=== PATIENT | male | born 1970 | race African-American/Black ===

== ENCOUNTER 2016-04-04 02:12 | Emergency (ER) ==
[2016-04-04] MEDS ORDERED: ATIVAN IM ONE (02:30)
--- NOTE | 2016-04-04 02:34 | PROVIDER DOCUMENTATION ---
HPI-General Adult <José AntonioShahbazKeliJacky PonceCheryl - Last Filed: 04/04/16 04:35> - General Source: patient - History of Present Illness -Gen Adult Nature of Presenting Problems: 45 Y/O M presents to ED with Anxiety. Pt states that this morning he was hanging out with a group of 20 dudes, and started smoking a cig, Pt states he doesn't know where the Cigarette came from. Swears he does not do drugs. Location of Pain/Injury: reports: none Pain Radiation: reports: no radiation Quality of Pain: reports: none Severity: reports: mild Onset/Duration: reports: this morning Timing: reports: still present Context/Activities at Onset: reports: none Associated Symptoms: reports: anxiety, shortness of breath Similar Symptoms Previously?: No Recently seen or treated by another doctor?: No <Lisa Sarkar - Last Filed: 04/10/16 16:51> - General Chief Complaint: Anxiety Stated Complaint: SOB Time Seen by Provider: 04/04/16 02:30 Allergies/Adverse Reactions: Patient Allergies Allergy/AdvReac Type Severity Reaction Status Date / Time No Known Allergies Allergy Verified 04/04/16 02:36 Home Medications: No Home Medications 01/26/16 Review of Systems - Adult - REVIEW OF SYSTEMS - ADULT Constitutional: denies: chills, fever Eyes: reports: no symptoms reported Ears, Nose, Mouth & Throat: reports: no symptoms reported Cardiovascular: reports: no symptoms reported Respiratory: reports: shortness of breath Gastrointestinal: reports: no symptoms reported Genitourinary: reports: no symptoms reported Musculoskeletal: reports: no symptoms reported Integumentary: reports: no symptoms reported Neurological: reports: no symptoms reported Psychiatric: reports: anxiety Endocrine: reports: no symptoms reported Hematologic/Lymphatic: reports: no symptoms reported Allergic/Immunologic: reports: no symptoms reported All Other Systems: Reviewed and Negative <Lisa Sarkar - Last Filed: 04/10/16 16:51> Past History - Adult - PAST MEDICAL HISTORY-ADULT Review of Records: reports: Old Records Reviewed, Nursing Assessment Review, Medications Reviewed, Social history reviewed & non-contributory. Major Childhood Illnesses: reports: denies history Cardiovascular: reports: denies history Respiratory: reports: denies history Gastrointestinal: reports: denies history Obstetrical/Gynecological: reports: denies history Genitourinary: reports: denies history Musculoskeletal: reports: denies history Neurological: reports: denies history Endocrine/Immune: reports: denies history Other Conditions: reports: denies history - IMMUNIZATION STATUS Childhood Immunizations: See Nurse Assessment Flu Vaccine: See Nurse Assessment - FAMILY HISTORY Family History: reviewed, not pertinent - SOCIAL HISTORY Smoking: cigarettes, greater than 1 pack/day Substance Use: marijuana, cocaine Alcohol Use Frequency: occasionally Living Situation: family <MelloLisa - Last Filed: 04/10/16 16:51> Physical Exam-General - PHYSICAL EXAM-ADULT Initial Vital Signs Reviewed: Yes - CONSTITUTIONAL General Appearance: appears well, alert, anxious - EYES Eyes: PERRL/EOMI, pink conjunctivae - HEAD, EARS, NOSE, MOUTH & THROAT HENMT: normocephalic/atraumatic, moist mucous membranes, normal ENT inspection - NECK Neck: non-tender, full range of motion, normal inspection - RESPIRATORY Respiratory: chest non-tender, lungs clear, other (tachypnea) - CARDIOVASCULAR Cardiovascular: normal peripheral pulses, regular rate, rhythm, no edema - GASTROINTESTINAL (ABDOMEN) Abdominal Exam: normal bowel sounds, non tender, soft - LYMPHATIC Lymphatic: no adenopathy - MUSCULOSKELETAL Back Exam: normal inspection, no CVA tenderness, no vertebral tenderness Extremity: normal range of motion, non-tender, normal gait - SKIN Integumentary: normal color, normal turgor, warm/dry - NEUROLOGIC Neurologic: grossly normal, no motor/sensory deficits - PSYCHIATRIC Psych/Mental Status: normal thought content, normal thought process, oriented x 3, anxious <MelloLisa - Last Filed: 04/10/16 16:51> Progress - PLAN OF CARE/RESULTS Progress/Plan/Lab Results: Laboratory Tests 04/04/16 04/04/16 04/04/16 02:45 02:45 02:45 WBC 8.46 RBC 4.72 Hgb 13.8 L Hct 39.1 L MCV 82.8 MCH 29.2 MCHC 35.3 RDW Std Deviation 13.4 Plt Count 296 MPV 10.3 Immature Gran % (Auto) 0.2 Neut % (Auto) 71.7 Lymph % (Auto) 14.2 L [place] % (Auto) 7.6 Eos % (Auto) 6.1 Baso % (Auto) 0.2 Immature Gran # (Auto) 0.02 Neut # 6.06 Lymph # 1.20 [place] # 0.64 H Eos # 0.52 Baso # 0.02 Sodium 131 L Potassium 3.4 L Chloride 94 L Carbon Dioxide 22 L Anion Gap 15 BUN 13 Creatinine 1.5 H Estimated GFR/1.73 m2 > 60 BUN/Creatinine Ratio 9 Glucose 176 H Calculated Osmolality 267 Calcium 8.5 L Total Bilirubin 0.57 AST 18 ALT 15 Alkaline Phosphatase 83 Total Protein 7.7 Albumin 4.4 Globulin 3.3 Albumin/Globulin Ratio 1.3 Urine Opiates Screen Ur Oxycodone Screen Ur Methadone, Qual Ur Barbiturates Screen Ur Phencyclidine Scrn Ur Amphetamines Screen U Benzodiazepines Scrn Urine Cocaine Screen U Cannabinoids Screen Plasma/Serum Ethyl Alc 04/04/16 03:35 WBC RBC Hgb Hct MCV MCH MCHC RDW Std Deviation Plt Count MPV Immature Gran % (Auto) Neut % (Auto) Lymph % (Auto) [place] % (Auto) Eos % (Auto) Baso % (Auto) Immature Gran # (Auto) Neut # Lymph # [place] # Eos # Baso # Sodium Potassium Chloride Carbon Dioxide Anion Gap BUN Creatinine Estimated GFR/1.73 m2 BUN/Creatinine Ratio Glucose Calculated Osmolality Calcium Total Bilirubin AST ALT Alkaline Phosphatase Total Protein Albumin Globulin Albumin/Globulin Ratio Urine Opiates Screen NONE DETECTED Ur Oxycodone Screen NONE DETECTED Ur Methadone, Qual NONE DETECTED Ur Barbiturates Screen NONE DETECTED Ur Phencyclidine Scrn NONE DETECTED Ur Amphetamines Screen NONE DETECTED U Benzodiazepines Scrn NONE DETECTED Urine Cocaine Screen PRESUMPTIVE POSITIVE A U Cannabinoids Screen NONE DETECTED Plasma/Serum Ethyl Alc Orders Category Date Time Status ALCOHOL BLOOD Stat Lab 04/04/16 02:45 Completed CBC WITH ELECTRONIC DIFF [HEME] Stat Lab 04/04/16 02:45 Completed CMP [COMPREHENSIVE METABOLIC PANEL] [CHEM] Stat Lab 04/04/16 02:45 Completed UDS [URINE DRUG SCREEN] Stat Lab 04/04/16 03:35 Completed Lorazepam [Ativan] Med 04/04/16 02:30 Discontinued 2 mg IM NOW ONE EKG [EKG] Stat Ther 04/04/16 02:30 Ordered Vital Signs Temp Pulse Resp BP Pulse Ox 04/04/16 02:20 98 F 100 H 25 H 182/102 100 No Known Allergies Allergy (Verified 04/04/16 02:36) No Home Medications 01/26/16 I&O 04/02/16 04/03/1604/04/17 06:59 06:59 06:59 Output Total 80 Balance -80 Laboratory 04/04/16 04/04/16 04/04/16 03:35 02:45 02:45 WBC 8.46 RBC 4.72 Hgb 13.8 L Hct 39.1 L MCV 82.8 MCH 29.2 MCHC 35.3 RDW Std Deviation 13.4 Plt Count 296 MPV 10.3 Immature Gran % (Auto) 0.2 Neut % (Auto) 71.7 Lymph % (Auto) 14.2 L [place] % (Auto) 7.6 Eos % (Auto) 6.1 Baso % (Auto) 0.2 Immature Gran # (Auto) 0.02 Neut # 6.06 Lymph # 1.20 [place] # 0.64 H Eos # 0.52 Baso # 0.02 Sodium 131 L Potassium 3.4 L Chloride 94 L Carbon Dioxide 22 L Anion Gap 15 BUN 13 Creatinine 1.5 H Estimated GFR/1.73 m2 > 60 BUN/Creatinine Ratio 9 Glucose 176 H Calculated Osmolality 267 Calcium 8.5 L Total Bilirubin 0.57 AST 18 ALT 15 Alkaline Phosphatase 83 Total Protein 7.7 Albumin 4.4 Globulin 3.3 Albumin/Globulin Ratio 1.3 Urine Opiates Screen NONE DETECTED Ur Oxycodone Screen NONE DETECTED Ur Methadone, Qual NONE DETECTED Ur Barbiturates Screen NONE DETECTED Ur Phencyclidine Scrn NONE DETECTED Ur Amphetamines Screen NONE DETECTED U Benzodiazepines Scrn NONE DETECTED Urine Cocaine Screen PRESUMPTIVE POSITIVE A U Cannabinoids Screen NONE DETECTED Plasma/Serum Ethyl Alc 04/04/16 02:45 WBC RBC Hgb Hct MCV MCH MCHC RDW Std Deviation Plt Count MPV Immature Gran % (Auto) Neut % (Auto) Lymph % (Auto) [place] % (Auto) Eos % (Auto) Baso % (Auto) Immature Gran # (Auto) Neut # Lymph # [place] # Eos # Baso # Sodium Potassium Chloride Carbon Dioxide Anion Gap BUN Creatinine Estimated GFR/1.73 m2 BUN/Creatinine Ratio Glucose Calculated Osmolality Calcium Total Bilirubin AST ALT Alkaline Phosphatase Total Protein Albumin Globulin Albumin/Globulin Ratio Urine Opiates Screen Ur Oxycodone Screen Ur Methadone, Qual Ur Barbiturates Screen Ur Phencyclidine Scrn Ur Amphetamines Screen U Benzodiazepines Scrn Urine Cocaine Screen U Cannabinoids Screen Plasma/Serum Ethyl Alc - REASSESSMENT Reassessment #1 Time Reassessed: 04:35 Status: improving <Jacky Wilburn - Last Filed: 04/04/16 04:35> - EKG 1 Time of EKG reading by physician:: 02:46 EKG Read and Signed by:: Jacky Wilburn EKG Interpretation (*Must complete 3 of following elements*): Normal Rate: 90 Rhythm: NSR Comments: Normal ECG <Lisa Sarkar - Last Filed: 04/10/16 16:51> Departure - Departure Time of Disposition Order: 04:35 Certified Medical Emergency: Emergent <Jacky Wilburn - Last Filed: 04/04/16 04:35> - Departure Certified Medical Emergency: Emergent <Lisa Sarkar - Last Filed: 04/10/16 16:51> - Departure DIAGNOSIS: Cocaine abuse with cocaine-induced anxiety disorder Disposition: HOME 01 Condition: Good Additional Instructions: don't use cocaine any more ED Follow Up Instructions: You have been treated by a care provider in the Emergency Department. These instructions are being provided to you so you can have an understanding of how to care for yourself upon discharge. Upon discharge from the Emergency Department, you are responsible for making arrangements for follow-up care by a physician of your choice. Take all prescribed medications as directed. Return to the Emergency Department immediately for any new or worsening symptoms. You may call the Physician Referral phone number at [phone] to obtain a list of Physicians who are taking new patients. Referrals: None,PCP [Primary Care Provider] - Instructions: Finding Treatment for Addiction Attestation - Scribe Verification/Attestation Scribe:: Lisa Sarkar Acting as Scribe for:: Jacky Wilburn Scribe documention review:: This chart was documented by a scribe and accurately reflects the service the provider performed and the decisions made by the provider. - Physician/ Mid-level Attestation Patient care was provided by Mid-level provider (INCUBATOR OPERATOR/PA):: Yes Mid-level provider:: Santiago Elizondo Mid-level documentation review:: The Mid-level provider documentation, treatment plan and medical decision making was reviewed by the physician who agrees with all treatment and medical decision making by the MLP. <Lisa Sarkar - Last Filed: 04/10/16 16:51> Physician Attestation
[2016-04-04 02:58] LABS: MANUAL DIFF NEEDED? NO
[2016-04-04 03:05] LABS: BASO% 0.2 % (0.0-0.8); EOS# 0.52 X1000 (0.0-0.7); EOS% 6.1 % (0.0-10.0); HEMATOCRIT 39.1 % (42.0-52.0); HEMOGLOBIN 13.8 g/dL (14.0-18.0); IMM GRAN# 0.02 X1000 (0.0-0.04); IMM GRAN% 0.2 % (0.0-0.5); LYMPH% 14.2 % (20.5-51.1); MCH 29.2 PG (27-31); MCHC 35.3 g/dL (33-37); MCV 82.8 FL (81-99); MONO# 0.64 X1000 (0.11-0.59); MONO% 7.6 % (1.7-9.3); MPV 10.3 FL (7.4-10.4); NEUT% 71.7 % (42.2-75.2); PLT 296 X1000 (130-400); RBC 4.72 XMIL (4.7-6.1)
[2016-04-04 03:22] LABS: AGAP 15; ALBUMIN 4.4 g/dL (3.5-5.0); ALKALINE PHOSPHATASE 83 U/L (32-122); BUN 13 mg/dL (8-22); CALCIUM 8.5 mg/dL (8.8-10.2); CHLORIDE 94 mmol/L (98-107); COSMO 267; GOT 18 U/L (10-34); GPT 15 U/L (10-44); POTASSIUM 3.4 mmol/L (3.5-5.1); SODIUM 131 mmol/L (136-145); TCO2 22 mmol/L (25-35); TOTAL BILIRUBIN 0.57 mg/dL (0.20-1.00); TOTAL PROTEIN 7.7 g/dL (6.3-8.3)
[2016-04-04 04:19] LABS: UR AMPHETAMINES QUAL NONE DETECTED (NONE DETECT); UR BARBITUATES QUAL NONE DETECTED (NONE DETECT); UR BENZODIAZEPIN QUAL NONE DETECTED (NONE DETECT); UR CANNABINOIDS QUAL NONE DETECTED (NONE DETECT); UR METHADONE QUAL NONE DETECTED (NONE DETECT); UR OPIATES QUAL NONE DETECTED (NONE DETECT); UR OXYCODONE QUAL NONE DETECTED (NONE DETECT); UR PCP QUAL NONE DETECTED (NONE DETECT)
[2016-04-04 04:26] LABS: UR COCAINE QUAL PRESUMPTIVE POSITIVE (NONE DETECT)
[2016-04-04 04:42] VITALS: BP 162/88
--- NOTE | 2016-04-04 05:44 | EKG Report ---
Test Performed on : 04/04/2016 02:41:43 AM Test Reason : anxiety, intoxicated Blood Pressure : / mmHG Vent. Rate : 090 BPM Atrial Rate : 090 BPM P-R Int : 130 ms QRS Dur : 096 ms QT Int : 386 ms P-R-T Axes : 068 006 021 degrees QTc Int : 472 ms Normal sinus rhythm. Normal ECG When compared with ECG of 15-NOV-2014 11:07, Nonspecific T wave abnormality has replaced inverted T waves in Inferior leads Unconfirmed Result
== END 2016-04-04 04:42 | disposition home or self-care (01) ==
LOC: ED 02:12
DX: F14.180 Cocaine abuse with cocaine-induced anxiety disorder (principal); R06.02 Shortness of breath; R06.82 Tachypnea, not elsewhere classified; F17.210 Nicotine dependence, cigarettes, uncomplicated; Z71.6 Tobacco abuse counseling
CPT/HCPCS: 80053; 85025; 93005; 96372; G0480; J2060